=== PATIENT | male | born 1930 | race Caucasian/White ===

== ENCOUNTER → 2017-04-30 | Outpatient (CLI) | payer OTHER, MEDICARE ==
[~2017-04-30] MED LIST: ALFU10TA2 PO; ASPI325T45 PO; LEVO125T72 PO; METO50TA7 PO; MULT-513 PO; OMEG10007 PO; PANT40TA2 PO; SIMV20TA2 PO
== END | disposition home or self-care (01) ==
LOC: C.LABBC 09:38
PROVIDERS: ATTEND Urology
DX: C61 Malignant neoplasm of prostate (principal)

== ENCOUNTER → 2017-05-06 | Outpatient (CLI) | payer OTHER, MEDICARE ==
[2017-05-06 13:48] LABS: HEMATOCRIT 39.6 % (42-52); MEAN CELL VOLUME 96.1 fL (80-100); MEAN CORPUSCULAR HEMOGLOBIN 31.8 pg (25-34); MEAN CORPUSCULAR HGB CONC 33.1 g/dl (32-36); MEAN PLATELET VOLUME 10.5 fL (7.4-10.4); PLATELET COUNT 211 K/uL (130-400); RED BLOOD COUNT 4.12 M/uL (4.7-6.1)
[2017-05-06 14:25] LABS: ALT/SGPT 22 U/L (12-78); AST/SGOT 18 U/L (15-37); BLOOD UREA NITROGEN 21 mg/dl (7-18); BUN/CREATININE RATIO 15.2 (10-20); CALCIUM 8.6 mg/dl (8.5-10.1); CARBON DIOXIDE 30 mmol/L (21-32); CHLORIDE 106 mmol/L (98-107); CHOLESTEROL 167 mg/dl (0-200); GLUCOSE 95 mg/dl (70-99); POTASSIUM 4.9 mmol/L (3.5-5.1); SODIUM 143 mmol/L (136-145)
[2017-05-06 14:37] LABS: ALB/GLOB RATIO 1.2 (0.9-2); ALKALINE PHOSPHATASE 56 U/L (45-117); CHOLESTEROL/HDL RATIO 1.9; HDL CHOLESTEROL 88 mg/dl; LDL CHOLESTEROL CALCULATED 70 mg/dl; TRIGLYCERIDES 44 mg/dl (0-150); VERY LOW DENSITY LIPOPROT CALC 9 mg/dl
== END | disposition home or self-care (01) ==
LOC: C.LABBC 09:19
PROVIDERS: ATTEND Internal Medicine
DX: E78.5 Hyperlipidemia, unspecified (principal); E05.00 Thyrotoxicosis with diffuse goiter without thyrotoxic crisis or storm

== ENCOUNTER → 2017-05-14 | Outpatient (CLI) | payer OTHER, MEDICARE ==
--- NOTE | 2017-05-14 12:37 | DIAGNOSTIC IMAGING REPORT ---
LEFT LOWER EXTREMITY VENOUS DOPPLER HISTORY: Left calf pain. COMPARISON STUDY: None. FINDINGS: There is normal compressibility, flow, and augmentation within the left lower extremity deep venous system. IMPRESSION: No DVT within the left lower extremity. Electronically signed by: Mario Tesfaye M.D. 05/14/2017 12:35 PM Dictated Date/Time: 05/14/2017 12:35 PM
== END | disposition home or self-care (01) ==
LOC: C.ULTR 11:40
PROVIDERS: ATTEND Internal Medicine
DX: M79.662 Pain in left lower leg (principal)

== ENCOUNTER → 2017-07-31 | Outpatient (CLI) | payer OTHER, MEDICARE ==
[~2017-07-31] MED LIST changes: -ALFU10TA2 PO; +ALFU10TA30 PO; -PANT40TA2 PO; +PRT/40 PO
== END | disposition home or self-care (01) ==
LOC: C.PATHSPEC 14:44
PROVIDERS: ATTEND Urology
DX: R31.29 Other microscopic hematuria (principal); C61 Malignant neoplasm of prostate

== ENCOUNTER → 2017-08-25 | Outpatient (CLI) | payer OTHER, MEDICARE ==
[2017-08-25 13:34] LABS: BASO % 0.7 %; EOS % 3.2 %; HEMATOCRIT 40.3 % (42-52); IG% 0.2 %; LYMPH % 21.5 %; LYMPH ABS # 0.87 K/uL (1.2-3.4); MEAN CELL VOLUME 94.8 fL (80-100); MEAN CORPUSCULAR HEMOGLOBIN 30.8 pg (25-34); MEAN CORPUSCULAR HGB CONC 32.5 g/dl (32-36); MEAN PLATELET VOLUME 10.6 fL (7.4-10.4); MONO % 9.2 %; NEUT % 65.2 %; PLATELET COUNT 226 K/uL (130-400); RED BLOOD COUNT 4.25 M/uL (4.7-6.1); WHITE BLOOD COUNT 4.04 K/uL (4.8-10.8)
[2017-08-25 13:35] LABS: BASO ABS # 0.03 K/uL (0-0.2); COMPLETE YES
[2017-08-25 14:06] LABS: FERRITIN 24.3 ng/ml (8.0-388.0); THYROID STIMULATING HORMONE 2.78 uIu/ml (0.300-4.500)
== END | disposition home or self-care (01) ==
LOC: C.LABBC 09:25
PROVIDERS: ATTEND Internal Medicine
DX: D64.9 Anemia, unspecified (principal); E05.00 Thyrotoxicosis with diffuse goiter without thyrotoxic crisis or storm

== ENCOUNTER → 2018-03-31 | Outpatient (CLI) | payer OTHER, MEDICARE ==
[~2018-03-31] MED LIST changes: +ALFU10TA2 PO; -ALFU10TA30 PO; +ASPECOTC PO; -ASPI325T45 PO; -METO50TA7 PO; +METO50TA8 PO; +PANT40TA2 PO; -PRT/40 PO
[2018-03-31 13:31] LABS: BASO % 0.2 %; BASO ABS # 0.01 K/uL (0-0.2); EOS % 2.6 %; EOS ABS # 0.12 K/uL (0-0.5); HEMATOCRIT 38.4 % (42-52); IG# 0.01 K/uL (0.00-0.02); LYMPH % 17.2 %; LYMPH ABS # 0.81 K/uL (1.2-3.4); MEAN CELL VOLUME 93.9 fL (80-100); MEAN CORPUSCULAR HEMOGLOBIN 31.8 pg (25-34); MEAN CORPUSCULAR HGB CONC 33.9 g/dl (32-36); MEAN PLATELET VOLUME 10.3 fL (7.4-10.4); MONO % 10.4 %; MONO ABS # 0.49 K/uL (0.11-0.59); NEUT % 69.4 %; NEUT ABS # 3.26 K/uL (1.4-6.5); PLATELET COUNT 220 K/uL (130-400); RED CELL DISTRIBUTION WIDTH CV 13.1 % (11.5-14.5); RED CELL DISTRIBUTION WIDTH SD 45.2 fL (36.4-46.3)
[2018-03-31 13:33] LABS: AST/SGOT 25 U/L (15-37); BLOOD UREA NITROGEN 20 mg/dl (7-18); CALCIUM 8.7 mg/dl (8.5-10.1); CARBON DIOXIDE 30 mmol/L (21-32); CREATININE 1.43 mg/dl (0.60-1.40); GLUCOSE 98 mg/dl (70-99); POTASSIUM 4.4 mmol/L (3.5-5.1); SODIUM 138 mmol/L (136-145)
[2018-03-31 13:44] LABS: ALT/SGPT 24 U/L (12-78); CHOLESTEROL 171 mg/dl (0-200); LDL CHOLESTEROL CALCULATED 74 mg/dl
== END | disposition home or self-care (01) ==
LOC: C.LABBC 09:31
PROVIDERS: ATTEND Urology
DX: E78.5 Hyperlipidemia, unspecified (principal); E89.0 Postprocedural hypothyroidism; R74.8 Abnormal levels of other serum enzymes; D64.9 Anemia, unspecified; C61 Malignant neoplasm of prostate

== ENCOUNTER → 2018-06-22 | Outpatient (CLI) | payer OTHER, MEDICARE ==
[~2018-06-22] MED LIST changes: -ASPECOTC PO; +ASPI81TA28 PO; +GLUC500C4 PO; +LEVO100T7 PO; -LEVO125T72 PO; -OMEG10007 PO; +SILD100T PO; +TURM1CAP2 PO; +[UNRECOGNIZED DRUG - CODE] PO
== END | disposition home or self-care (01) ==
LOC: C.LABSPEC 13:19
PROVIDERS: ATTEND Urology
DX: R31.29 Other microscopic hematuria (principal); R35.1 Nocturia

== ENCOUNTER → 2018-06-26 | Outpatient (CLI) | payer OTHER, MEDICARE | END | disposition home or self-care (01) | LOC: C.LAB1850 10:23 | PROVIDERS: ATTEND Internal Medicine | DX: N30.00 Acute cystitis without hematuria (principal) ==

== ENCOUNTER → 2018-06-30 | Outpatient (CLI) | payer OTHER, MEDICARE | END | disposition home or self-care (01) | LOC: C.PATHSPEC 17:05 | PROVIDERS: ATTEND Urology | DX: R31.29 Other microscopic hematuria (principal) ==

== ENCOUNTER → 2018-07-12 | Outpatient (CLI) | payer OTHER, MEDICARE ==
--- NOTE | 2018-07-12 11:44 | DIAGNOSTIC IMAGING REPORT ---
ULTRASOUND KIDNEYS AND BLADDER CLINICAL HISTORY: Microscopic hematuria. COMPARISON STUDY: No priors. TECHNIQUE: Real-time, grayscale, and color flow sonography of the kidneys and bladder is performed. Images are reviewed in the transverse and longitudinal planes. FINDINGS: Kidneys: The kidneys demonstrate mild cortical atrophy and are normal in echotexture. The right kidney measures 10.0 cm in length and the left kidney measures 9.9 cm. There is no hydronephrosis. No shadowing renal calculi are identified. Bilateral renal cysts measure up to 3.0 cm. There is no sonographic evidence of contour deforming renal mass lesion. No perinephric fluid is identified. Bladder: Prostate gland is heterogeneous. The bladder wall appears mildly thickened and trabeculated suggesting chronic outlet obstruction. Bilateral ureteral jets were seen. IMPRESSION: 1. The kidneys demonstrate mild cortical atrophy and are without hydronephrosis. 2. The prostate gland appears heterogeneous. 3. The appearance of the bladder suggests chronic outlet obstruction. Electronically signed by: Juan Carlos Smith M.D. 07/12/2018 11:42 AM Dictated Date/Time: 07/12/2018 11:11 AM
== END | disposition home or self-care (01) ==
LOC: C.ULTR 10:11
PROVIDERS: ATTEND Urology
DX: R31.29 Other microscopic hematuria (principal); R35.1 Nocturia